=== PATIENT | female | born 1965 | race Caucasian/White ===

== ENCOUNTER 2021-09-09 09:09 | Outpatient (CLI) | payer OTHER | END 2021-09-09 09:10 | disposition home or self-care (01) | LOC: BICMAMMO 09:09 | PROVIDERS: ATTEND Family Medicine | DX: R92.2 Inconclusive mammogram (principal); N60.12 Diffuse cystic mastopathy of left breast | CPT/HCPCS: G0279 ==

== ENCOUNTER 2022-03-09 10:41 | Outpatient (CLI) | payer OTHER | END 2022-03-09 10:42 | disposition home or self-care (01) | LOC: BICULT 10:41 | PROVIDERS: ATTEND Family Medicine | DX: N60.02 Solitary cyst of left breast (principal) ==